=== PATIENT | male | born 1995 | race Hispanic/Latino ===

== ENCOUNTER 2024-01-01 13:25 | Emergency (ER) | payer OTHER ==
[~2024-01-01] VITALS: Ht 182.9 cm; Wt 147.4 kg
[2024-01-01 13:26] VITALS: BP 154/105; PULSE 109; RESP 18
[2024-01-01 13:34] VITALS: O2SAT 98
[2024-01-01] MEDS ORDERED: TOBRDOS OD (13:40)
[2024-01-01] MEDS: TOBRAMYCIN/DEXAMETHASONE OPTH SUSP 2.5 ML BOT OD SCH (13:55)
== END 2024-01-01 13:59 | disposition home or self-care (01) ==
LOC: EDH 13:25
DX: H10.89 Other conjunctivitis (principal); H57.11 Ocular pain, right eye